=== PATIENT | female | born 1985 | race Caucasian/White ===

== ENCOUNTER 2023-12-31 03:14 | Emergency (ER) | payer OTHER ==
[2023-12-31] MEDS ORDERED: Orphenadrine Citrate 60 MG/2 ML VIAL ONE (03:45)
[2023-12-31] MEDS ORDERED: Lidocaine 4% Patch ONE (03:45)
[2023-12-31] MEDS ORDERED: fentaNYL 50 mcg/mL 1 mL Vial ONE (03:45)
[2023-12-31] MEDS ORDERED: Lactated Ringer's 1,000 ML ONE (03:45)
[2023-12-31 03:57] LABS: BHCG - Serum Negative (NEGATIVE); Pregs Control Background? CLEAR/WHITE (CLR/WHITE); Pregs Control Bar Appear? YES (CONTROL BAR)
[2023-12-31 04:01] LABS: Hematocrit 39.2 % (36.0-47.0); Hemoglobin 12.1 g/dL (12.0-16.0); Mean Corpuscular Hemoglobin 27.6 pg (27.0-31.0); Mean Corpuscular Volume 89.2 fl (78.0-98.0); Mean Platelet Volume 8.2 fL (7.4-10.4); Platelet Count 210 10x3/uL (130-400); White Blood Cell (WBC) Count 8.6 10x3/uL (4.8-10.8)
[2023-12-31 04:05] LABS: Band 3 % (5-11); Eosinophils 2 % (0-10); Lymphocytes 30 % (21-51); MDiff Complete? YES; Manual Diff?? YES; Monocytes 3 % (0-10); Neutrophil 62 % (42-75); Platelet Adequacy Comment Appears Adequate; RBC Morph Comment Within Normal Limits
[2023-12-31 04:10] LABS: Troponin I Less than 0.010 ng/mL (< 0.028)
[2023-12-31 04:15] LABS: ALT (SGPT) 12 U/L (8-55); AST (SGOT) 13 U/L (5-34); Albumin 3.4 g/dL (3.5-5.0); Alkaline Phosphatase 52 U/L (40-110); Anion Gap 13 mmol/L (10-20); BUN (Urea Nitrogen) 9 mg/dL (7.0-18.7); Bilirubin, Total 0.3 mg/dL (0.2-1.2); Calc. Creatinine Clearance 0 mL/min (70-130); Calcium 8.5 mg/dL (7.8-10.44); Carbon Dioxide 20 mmol/L (22-29); Chloride 112 mmol/L (98-107); Estimated GFR 103; Globulin 2.2 g/dL (2.4-3.5); Glucose 116 mg/dL (70-105); Lipase 18 U/L (8-78); Potassium 3.6 mmol/L (3.5-5.1); Protein, Total 5.6 g/dL (6.0-8.3); Sodium 141 mmol/L (136-145)
[2023-12-31] MEDS ORDERED: Iopamidol 370 76% 100 ML VIAL ONE (09:00)
== END 2023-12-31 09:47 | disposition home or self-care (01) ==
LOC: MADERS 03:14
DX: S20.219A Contusion of unspecified front wall of thorax, initial encounter (principal); I10 Essential (primary) hypertension; F17.210 Nicotine dependence, cigarettes, uncomplicated; V68.5XXA Driver of heavy transport vehicle injured in noncollision transport accident in traffic accident, initial encounter
CPT/HCPCS: 71260; 74177; 80053; 83690; 84484; 84703; 85025; 93005; 94760; 96374; 96375; J2360; J3010; J7120; Q9967